=== PATIENT | male | born 1945 | race Caucasian/White ===

== ENCOUNTER → 2017-12-03 | Outpatient (CLI) | payer MEDICARE ==
[~2017-12-03] MED LIST: ASPI-516 CHEW; ATOR40TA16 PO; CARV3.12 PO; LAMO150 PO; LISI-519 PO
--- NOTE | 2017-12-03 11:26 | RADRPT ---
EXAM DATE/TIME: 12/03/2017 11:16 [place] COMPARISON: No previous studies available for comparison. INDICATIONS : Short of breath MEDICAL HISTORY : Sleep apnea SURGICAL HISTORY : CABG. ENCOUNTER: Initial ACUITY: 1 week PAIN SCORE: 0/10 LOCATION: chest FINDINGS: PA and lateral views of the chest demonstrate linear densities at the lung bases. There is also lucen cy of the left costophrenic angle. Status post CABG.. Osseous structures are intact. CONCLUSION: 1. Minimal bibasilar scarring. 2. Lucency in the left costophrenic angle likely bullous disease. 3. Status post CABG. Mitch Ac MD on December 03, 2017 at 11:22 Board Certified Radiologist. This report was verified electronically.
--- NOTE | 2017-12-08 11:18 | RSPPFT ---
DATE OF PROCEDURE: 12/03/17 COMMENTS: Spirometry with FVC of 2.8, FEV1 of 2.0, FEV1/FVC ratio at 72%. TLC is 70%. Diffusion capacity is normal. IMPRESSION: 1. Moderate airways obstruction. 2. Associated mild airways restriction. 3. Non-significant response to acutely inhaled bronchodilator. 4. Normal diffusion capacity.
== END ==
LOC: HRSP 09:50
PROVIDERS: ATTEND Internal Medicine Sleep Medicine
DX: R06.89 Other abnormalities of breathing (principal)
CPT/HCPCS: 36600; 71046; 82805; 94060; 94726; 94729